=== PATIENT | male | born 1990 | race Caucasian/White ===

== ENCOUNTER 2021-06-28 17:40 | Emergency (ER) | payer OTHER, SELFPAY ==
[2021-06-28] VITALS (9 sets, daily range): BP systolic 132–160; BP diastolic 86–100; PULSE 82–123; RESP 16–21; TEMP 37.1; O2SAT 95–100; BMI 33.9
--- NOTE | 2021-06-28 17:55 | CT_ITS ---
We are attempting to reach an attending provider to discuss findings. An addendum with communication details will be sent when the communication is complete. EXAM: CT ANGIOGRAPHY HEAD AND NECK WITH INTRAVENOUS CONTRAST CLINICAL INDICATION: Neuro deficit, acute, stroke suspected Technologist Notes Other, headache,lt arm and leg numbness and tingling TECHNIQUE: [place]/head and neck CT angiography protocol performed with intravenous contrast. This CT exam was performed using one or more of the following dose reduction techniques: automated exposure control, adjustment of the mA and/or kV according to patient size, and/or use of iterative reconstruction technique. This report was created using [employer] report [employer] technology. MIP reconstructed images were created and reviewed. CONTRAST: IV 100mL [id number] COMPARISON: ct head of the same day FINDINGS: HEAD: RIGHT ANTERIOR CEREBRAL ARTERY: Unremarkable. No significant stenosis at the visualized segments. Anterior communicating artery is present. No aneurysm. RIGHT MIDDLE CEREBRAL ARTERY: Unremarkable. No significant stenosis at the visualized segments. No aneurysm. RIGHT POSTERIOR CEREBRAL ARTERY: Unremarkable. No occlusion or significant stenosis. No aneurysm. LEFT ANTERIOR CEREBRAL ARTERY: Unremarkable. No significant stenosis at the visualized segments. No aneurysm. LEFT MIDDLE CEREBRAL ARTERY: Unremarkable. No significant stenosis at the visualized segments. No aneurysm. LEFT POSTERIOR CEREBRAL ARTERY: Unremarkable. No occlusion or significant stenosis. No aneurysm. BASILAR ARTERY: Unremarkable. No significant stenosis. No aneurysm. GREAT VESSELS OF AORTIC ARCH: Unremarkable. Normal anatomy, patent. OTHER VASCULATURE: No vascular malformation. NECK: RIGHT COMMON CAROTID ARTERY: Unremarkable. No significant stenosis. No dissection or occlusion. RIGHT INTERNAL CAROTID ARTERY: Unremarkable. No significant stenosis. No dissection or occlusion. RIGHT EXTERNAL CAROTID ARTERY: Unremarkable. No occlusion. RIGHT VERTEBRAL ARTERY: Unremarkable. No significant stenosis. No dissection or occlusion. LEFT COMMON CAROTID ARTERY: Unremarkable. No significant stenosis. No dissection or occlusion. LEFT INTERNAL CAROTID ARTERY: Unremarkable. No significant stenosis. No dissection or occlusion. LEFT EXTERNAL CAROTID ARTERY: Unremarkable. No occlusion. LEFT VERTEBRAL ARTERY: Unremarkable. No significant stenosis. No dissection or occlusion. LUNG APICES: Unremarkable as visualized. SOFT TISSUES: Unremarkable. CAROTID STENOSIS REFERENCE USING NASCET CRITERIA: % ICA stenosis = (1 - narrowest ICA diameter/diameter of distal cervical ICA) x 100. Mild - <50% stenosis. Moderate - 50-69% stenosis. Severe - 70-94% stenosis. Near occlusion - 95-99% stenosis. Occluded - 100% stenosis. CT/STROKE CTA Head AND Neck W/Con IMPRESSION: Negative CTA carotid and CTA brain. ALL ABOVE CRITERIA BY NASCET. Electronically Signed: Ishan Radford MD at 18:26 EST , Service support ,
--- NOTE | 2021-06-28 17:55 | EKG12_ITS ---
Test Reason : NEURO S/SX Blood Pressure : / mmHG Vent. Rate : 105 BPM Atrial Rate : 105 BPM P-R Int : 154 ms QRS Dur : 114 ms QT Int : 372 ms P-R-T Axes : 030 -09 002 degrees QTc Int : 491 ms Sinus tachycardia Poor R wave progression Confirmed by WM BUTLER, ANNETTE ([id number]), editor school photograph EMANUEL OLIVAREZ ([id number]) on 06/30/2021 1:26:33 PM Referred By: DAYSI Confirmed By:ANNETTE BURK MD
--- NOTE | 2021-06-28 17:55 | CT_ITS ---
EXAM: CT HEAD WITHOUT INTRAVENOUS CONTRAST CLINICAL INDICATION: Neuro deficit, acute, stroke suspected TECHNIQUE: Multiple axial images were obtained of the head without intravenous contrast. This CT exam was performed using one or more of the following dose reduction techniques: automated exposure control, adjustment of the mA and/or kV according to patient size, and/or use of iterative reconstruction technique. This report was created using [employer] water systems report generation technology. COMPARISON: None. FINDINGS: BRAIN AND EXTRA-AXIAL SPACES: Unremarkable. No intra- or extra-axial hemorrhage. No evidence of acute infarct. No intracranial mass or mass effect. There is preservation of the dominguez/white matter interface. Posterior fossa structures are unremarkable. Ventricles are appropriate for age. No hydrocephalus. Basal cisterns are patent. BONES/JOINTS: Unremarkable. No discrete lytic or blastic abnormalities. SINUSES: There is mild maxillary sinus disease. MASTOID AIR CELLS: Unremarkable. Clear. ORBITS: Visualized globes, extraocular muscles, optic nerves and retrobulbar fat appear unremarkable. CT/STROKE Brain/Head without Cont IMPRESSION: No acute findings in the head/brain. N.B. : The above Results were Read Back by Ishan Radford MD to MD meliton, and understanding confirmed on 06/28/2021 18:15:35 (ET). Electronically Signed: Ishan Radford MD at 18:08 EST , Service support ,
--- NOTE | 2021-06-28 17:57 | EDS_ITS ---
HPI History of Present Illness Chief Complaint: Numb/Ting Informant: patient Onset/Context/Timing Onset: Today and Hours Context: Sudden Onset Timing: Continuous Quality and Location: Positive for Left Arm Parasthesia and Left Leg Parasthesia; Negative for Slurred Speech, Expressive Aphasia, Receptive Aphasia and Difficulty with Ambulation Current Severity: Mild Maximum Severity: Mild Associated Symptoms Associated Symptoms: Positive for Headache; Negative for Nausea, Vomiting and Chest Pain Narrative Narrative: 30-year-old male no sniffing past medical history. Currently on no medications. States he feels unwell . States today around 1 PM he started having numbness and tingling in his left arm and leg. No motor loss or weakness. No prior history. Says he has a slight headache in the back of his head. He said he also a slight headache last night and had nausea vomiting x1 last night. No head injury or history of any trauma. He is on no blood thinners. He has not had any recent falls. There is no family history of intracranial bleeds, strokes at a young age or brain aneurysm. He denies any visual changes, weakness or problems with his speech. Prior similar symptoms: No Recent Illness/Hospitalization: No PFSH PFSH Medical History no medical history no medical history Home Medications NK 06/28/21 [History Last Taken Unknown] Allergy/AdvReac Type Severity Reaction Status Date / Time varenicline [From Chantix] AdvReac Upset Verified 06/28/21 17:43 Stomach Surgical History no surgical history Social History Smoking Status: Current every day smoker tobacco type: cigarettes ROS ROS ED ROS Narrative Denies recent illness. Headaches. Left-sided tingling. Review of Systems ROS Unobtainable: Denies due to encephalopathy Constitutional Constitutional ED: Denies chills or fever(s) Eyes Eyes: Denies change in vision ENT ENT ED: Denies ear pain or sore throat Cardiovascular Cardiovascular: Denies chest pain or palpitations Respiratory/Chest Respiratory/Chest: Denies cough or dyspnea Gastrointestinal Gastrointestinal: Reports nausea and vomiting; Denies abdominal pain or diarrhea Genitourinary Genitourinary ED: Denies dysuria Musculoskeletal Musculoskeletal: Denies myalgias Integumentary Denies rash Neurologic Neurologic: Reports headache(s) Psychiatric Psychiatric: Denies depression Endocrine Endocrinology: Denies polyuria Hematologic/Lymphatic Hematologic/Lymphatic: Denies easy bruising Allergic/Immunologic Allergic/Immunologic ED: Denies urticaria EXAM Physical Exam Narrative Exam Narrative: 22-year-old male no acute distress vital signs stable pressure is slightly elevated 155/92. He does not look septic or toxic. H EENT exam atraumatic. Pupils round react light motions are intact. No facial droop. Normal speech. Neck nontender. Lungs clear to auscultation bilaterally. Heart regular rhythm rate about 110. No murmur. Chest nontender. Abdomen soft nontender. Moving all 4 extremities. Neurovascular intact. 5/5 circle beveler strength bilaterally. Dorsi plantarflexion intact. He has touch sensation on both upper and lower extremities he just says subjectively it seems diminished on the left. Fingertip to nose is normal bilaterally. Const Vital Signs: 06/28/21 17:46 06/28/21 17:58 06/28/21 18:09 Temperature 98.7 F Temperature Source Oral Pulse Rate 119 H 82 117 H Respiratory Rate 20 H 18 20 H Blood Pressure 155/92 H 160/100 H 144/96 H Blood Pressure Mean 113 120 112 Pulse Ox 99 99 98 Oxygen Delivery Method Room Air Room Air Room Air 06/28/21 18:17 06/28/21 18:45 06/28/21 19:00 Temperature Temperature Source Pulse Rate 110 H 117 H 118 H Respiratory Rate 21 H 20 H 18 Blood Pressure 149/93 H 147/98 H 142/93 H Blood Pressure Mean 111 114 109 Pulse Ox 97 95 95 Oxygen Delivery Method Room Air Room Air Room Air 06/28/21 19:19 Temperature Temperature Source Pulse Rate 123 H Respiratory Rate 18 Blood Pressure 142/93 H Blood Pressure Mean 109 Pulse Ox 96 Oxygen Delivery Method Room Air Positive well nourished, well developed and obese; Negative for cachectic, contractures or unkempt General Appearance ED: well developed and NAD; Negative for unkempt, cachectic or contractures Nutritional Appearance: obese; Negative for cachectic HEENT Reports moist mucous membranes atraumatic; Negative for trauma Eyes PERRL and EOMs intact bilaterally General Eye ED: Negative for pale conjunctiva Neck no lymphadenopathy, supple and no JVD General: Negative for tenderness Chest Wall inspection of chest normal and palpation of chest normal Resp normal respiratory effort and clear to auscultation bilaterally Auscultation: Negative for rales, rhonchi, wheezes or diminished lung sounds Cardio no murmurs Rate: tachycardic; Negative for regular rate Rhythm: regular rhythm Heart Sounds: S1 normal and S2 normal GI normal to inspection, nondistended, normoactive bowel sounds, soft to palpation, non-tender, non-distended and no masses Inspection: Negative for abdominal distention Auscultation: normoactive bowel sounds Palpation: Negative for tender, guarding or rebound tenderness present Back/Spine no CVA tenderness General Back: Negative for CVA tenderness Cervical Spine: Negative for cervical spine tenderness Thoracic Spine / Upper Back: Negative for thoracic spinal tenderness Extremity normal to inspection General Extremety ED: Negative for deformity or tenderness General Extremity: Negative for deformity Neuro oriented x3 and CN's II-XII intact bilaterally Sensorium / Orientation: alert, oriented to person, oriented to place and oriented to time; Negative for orientation impaired, confused, lethargic or stuporous Speech: speech normal Motor Exam: strength 5/5 throughout; Negative for general weakness or strength abnormal Psych mental status grossly normal Appearance: Negative for unkempt Mood & Affect: Negative for depressed Skin no wounds General Skin Exam: Negative for jaundice Lesions: no lesions Rashes: no rashes and No rashes noted STROKE Vital Signs/Narrative: Vital Signs Temp Pulse Resp BP Pulse Ox 06/28/21 19:19 123 H 18 142/93 H 96 06/28/21 19:00 118 H 18 142/93 H 95 06/28/21 18:45 117 H 20 H 147/98 H 95 06/28/21 18:17 110 H 21 H 149/93 H 97 06/28/21 18:09 117 H 20 H 144/96 H 98 06/28/21 17:58 82 18 160/100 H 99 06/28/21 17:46 98.7 F 119 H 20 H 155/92 H 99 MDM MDM MDM Narrative Medical decision making narrative: 30-year-old male has posterior headache with left-sided arm and leg tingling and decreased sensation. Currently his NIH score is 0. Symptoms began around 1 PM. He has been placed in the stroke protocol. Repeat exam at 7:50 PM patient doing well. Neurologic exam remains normal. He and I went over all of his test and imaging. He will be given IV Toradol for his headache as this may all be from a migraine. Be reevaluated. As long as he is still doing as well as he is now will be discharged home. Lab Data Attestation: I reviewed the patient's lab results. Lab results narrative: CBC normal. PT, INR PTT normal. Electrolytes unremarkable potassium 3.1. Gap of 12 normal BUN and creatinine. Leukos 98 troponin normal Labs: Laboratory Results - last 24 hr 06/28/21 06/28/21 06/28/21 17:55 17:55 17:55 WBC 9.0 RBC 5.47 Hgb 15.2 Hct 45.5 MCV 83.2 MCH 27.8 MCHC 33.4 RDW Std Deviation 39.5 RDW Coeff of Juanita 13.0 Plt Count 344 MPV 9.2 Immature Gran % (Auto) 0.300 Neut % (Auto) 68.6 Lymph % (Auto) 21.2 [place] % (Auto) 9.5 Eos % (Auto) 0.2 Baso % (Auto) 0.2 Absolute Neuts (auto) 6.2 Absolute Lymphs (auto) 1.92 Nucleated RBC % 0 PT 13.6 INR 1.1 APTT 29.1 Sodium 141 Potassium 3.2 L Chloride 105 Carbon Dioxide 24.0 Anion Gap 12 BUN 13 Creatinine 1.04 Estim Creat Clear Calc 105.75 Est GFR (MDRD) Af Amer 109 Est GFR (MDRD) Non-Af 90 BUN/Creatinine Ratio 12.5 Glucose 98 Calcium 9.7 Troponin I High Sens 4 Radiography Diagnostic Testing: Clinical Impression(s) from Imaging Studies Brain CT 06/28/21 17:55 IMPRESSION: No acute findings in the head/brain. N.B. : The above Results were Read Back by Ishan Radford MD to MD meliton, and understanding confirmed on 06/28/2021 18:15:35 (ET). Electronically Signed: Ishan Radford MD at 18:08 EST , Service support , Head/Neck CTA 06/28/21 17:55 IMPRESSION: Negative CTA carotid and CTA brain. ALL ABOVE CRITERIA BY [facility]. Electronically Signed: Ishan Radford MD at 18:26 EST , Service support , ADDENDUM: 06/28/21 1834 IMPRESSION: Negative CTA carotid and CTA brain. ALL ABOVE CRITERIA BY NASCET. N.B. : The above Results were Read Back by Ishan Radford MD to MD Jory, and understanding confirmed on 06/28/2021 18:27:59 (ET). Electronically Signed: Ishan Radford MD at 18:26 EST , Service support , Chest X-Ray 06/28/21 18:51 IMPRESSION: No radiographic evidence of acute cardiopulmonary disease. Electronically Signed: Ishan Radford MD at 19:05 EST , Service support , Chest x-ray portable, single view shows no acute abnormality. Normal cardiac silhouette. Normal infiltrates. Also read and reviewed by the radiologist agrees. Rhythm Strip Rhythm Strip: Sinus Tach Rate: 105 Ectopy: None EKG Initial EKG: Attestation: I personally reviewed and interpreted this EKG as follows: Interpretation: Sinus Rhythm and No Acute Injury Pattern Comments: Sinus tachycardia rate of 105 no acute signs of MS or ischemia. Prior EKG tracings: available for review Stroke Documentation Questions Reviewed Inclusion/Exclusion criteria: Yes Discharge Plan Triage Chief Complaint: Numb/Ting ED Provider: Juve Jacob Dx/Rx/DC Orders Clinical Impression: Paresthesia, Headache Instructions: ED, Migraine (Classical) Prescriptions: No Action NK RF: 0 Primary Care Provider: Brayan Baker Referrals: Brayan Baker MD [Primary Care Provider] - 3-5 Days if not improving Activity Restrictions/Additional Instructions: No signs of a stroke nor aneurysm nor bright bleeding in your brain today. All your tests were normal. This may all be from a migraine headache. Can often get numbness with that and sometimes it will look just like a stroke. Tylenol and Motrin for discomfort. Follow-up with your doctor if not improving or return if a lot worse. Disposition Disposition: Home, Self Care
[2021-06-28 18:01] LABS: Absolute Lymphocyte Count 1.92 X10^3/uL (0.83-4.51); Absolute Neutrophil Count 6.2 X10^3/uL (2.0-7.7); Basophil# 0.02 X10^3/uL; Basophil% 0.2 % (0-1); Eosinophil# 0.02 X10^3/uL; Eosinophils% 0.2 % (0-5); Hematocrit 45.5 % (40-54); Hemoglobin 15.2 g/dL (13.0-16.5); Lymphocyte # 1.92 X10^3/ul (0.83-4.51); Lymphocyte % 21.2 % (19-41); Mean Corp Hgb Conc 33.4 g/dL (32-36); Mean Corpuscular Hgb 27.8 pg (27.0-32.0); Mean Corpuscular Volume 83.2 fL (80-94); Mean Platelet Vol. 9.2 fl (6.2-12.0); Monocyte# 0.86 X10^3/uL; Monocyte% 9.5 % (0-10); NRBC Flagged by Analyzer 0 % (0-5); Neutrophil # 6.19 X10^3/uL (2.7-7.7); Neutrophil % 68.6 % (47-70); Platelet Count 344 K/mm3 (150-450); RBC Distribution Width SD 39.5 fl (35.1-43.9); Red Blood Count 5.47 M/mm3 (4.6-6.2)
--- NOTE | 2021-06-28 18:02 | NURSING ---
[phone] STROKE ALERT CALLED
--- NOTE | 2021-06-28 18:02 | NURSING ---
NO OLD EKGS
--- NOTE | 2021-06-28 18:02 | CM.ED ---
SW Note Referral Source: Stroke Alert Referral Reason: Stroke Alert SW responded to Stroke Alert. Patient was in imaging. SW spoke to RN's who indicated no family was Present. SW remains available if SW needs arise. Plan: SW will remain if additional support or services are needed. Maria Dolores WALKER
--- NOTE | 2021-06-28 18:07 | NURSING ---
FACESHEET FAXED TO [facility]
[2021-06-28 18:19] LABS: Anion Gap 12 (5-15); BUN 13 mg/dL (7-18); BUN/Creat Ratio 12.5 RATIO (10-20); Calcium,Total 9.7 mg/dL (8.5-10.1); Chloride 105 mmol/L (98-107); Creatinine, Serum 1.04 mg/dL (0.70-1.30); EST Glomerular Filtration Rate 90 mL/min (>60); Est Glom Filt Rate - Afr Amer 109 mL/min (>60); Estimated Creatinine Clearance 105.75 ml/min; Glucose 98 mg/dL (74-106); Potassium 3.2 mmol/L (3.5-5.1); Sodium Level 141 mmol/L (136-145); Troponin-I HS 4 pg/mL (3.0-78.0)
[2021-06-28] MEDS: Aspirin 81 MG TAB.CHEW PO (18:22)
[2021-06-28] MEDS: Contrast Allergy Safety Check IV (18:27)
--- NOTE | 2021-06-28 18:51 | RAD_ITS ---
EXAM: XR CHEST, 1 VIEW CLINICAL INDICATION: Neuro deficit, acute, stroke suspected TECHNIQUE: Frontal view of the chest. This report was created using [employer] report generation technology. COMPARISON: None. FINDINGS: LUNGS AND PLEURAL SPACES: Unremarkable. No consolidation or edema. No pneumothorax. No effusion. HEART: Unremarkable. Cardiac silhouette not enlarged. MEDIASTINUM: Central airways and mediastinal contour are unremarkable. BONES/JOINTS: Unremarkable. SOFT TISSUES: Unremarkable. RAD/Chest 1 View IMPRESSION: No radiographic evidence of acute cardiopulmonary disease. Electronically Signed: Ishan Radford MD at 19:05 EST , Service support ,
[2021-06-28 18:53] LABS: International Normalized Ratio 1.1; Partial Thromboplast Time 29.1 Seconds (24.1-36.2); Prothrombin Time (Protime)PT. 13.6 SECONDS (11.7-14.9)
[2021-06-28] MEDS: Ketorolac 30 MG/ML Syringe IV (20:01)
--- NOTE | 2021-06-28 20:05 | ED.RN ---
NIH discontinued per dr order. Plan of care is pain medication and discharge. soila freeman rn 2005
[2021-06-28 20:41] LABS: Bedside Glucose 111 mg/dL (70-110)
== END 2021-06-28 20:38 | disposition home or self-care (01) ==
PROVIDERS: Emergency Provider Emergency Medicine; PCP Family Medicine
DX: R20.2 Paresthesia of skin (principal); R51.9 Headache, unspecified; E66.9 Obesity, unspecified; F17.210 Nicotine dependence, cigarettes, uncomplicated
CPT/HCPCS: 70450; 70496; 70498; 71045; 80048; 82962; 84484; 85025; 85610; 85730; 93005; 96374; 99285; J7040; Q9967; A4216